=== PATIENT | male | born 1965 | race Caucasian/White ===

== ENCOUNTER 2018-07-15 22:24 | Inpatient (IN) | payer MEDICAID ==
[~2018-07-15] VITALS: Ht 188 cm; Wt 74.9 kg
[~2018-07-15 22:24] MED LIST: aspirin 300mg supp.rect RC ONE; aspirin 81mg tab.chew ONE; heparin 1,000 units/ml 10ml inj ONE; heparin, porcine-25,000 units/250ml premix IV ONE
[2018-07-15] MEDS ORDERED: heparin 25,000 UNIT/250ml bag 250 ML IV SCH ×2 (22:37→22:58)
[2018-07-15] MEDS ORDERED: heparin 10,000 units/1 ML INJ IV ONE ×2 (22:40→23:00)
[2018-07-15] MEDS ORDERED: aspirin 81mg tab.chew PO ONE (22:40)
[2018-07-15] MEDS ORDERED: heparin 10,000 units/1 ML INJ IV PRN (22:40)
[2018-07-15 22:44] LABS: BASOPHILS % (AUTO) 0.3 % (0-1); EOSINOPHILS # (AUTO) 0.2 X10'3 (0-0.9); EOSINOPHILS % (AUTO) 3.9 % (0-6); HEMATOCRIT 42.7 % (42.0-52.0); LYMPHOCYTES # (AUTO) 1.3 X10'3 (1.1-4.8); LYMPHOCYTES % (AUTO) 23.3 % (21-51); MEAN CORPUSCULAR HGB CONC 32.8 % (33.0-36.5); MEAN CORPUSCULAR VOLUME 88.3 FL (78-98); MEAN PLATELET VOLUME 7.8 FL (7.4-10.4); MONOCYTES # (AUTO) 0.4 X10'3 (0-0.9); MONOCYTES % (AUTO) 7.3 % (2-12); NEUTROPHILS # (AUTO) 3.6 X10'3 (1.8-7.7); NEUTROPHILS % (AUTO) 65.2 % (42-75); PLATELET COUNT 191 X10'3 (140-440); RED BLOOD COUNT 4.84 X10'6 (4.70-6.10); RED CELL DISTRIBUTION WIDTH 19.1 % (11.5-14.5); WHITE BLOOD COUNT 5.5 X10'3 (4.5-11.0)
[2018-07-15] MEDS ORDERED: RITO100C2 PO (22:52)
[2018-07-15] MEDS ORDERED: DARU100O PO (22:52)
[2018-07-15] MEDS: nitroGLYCERIN 0.4mg SUBLingual tab SL PRN ×2 (22:52→22:56)
[2018-07-15 23:01] LABS: ALANINE AMINOTRANSFERASE 38 U/L (12-78); ALBUMIN 3.3 G/DL (3.4-5.0); ALBUMIN/GLOBULIN RATIO 0.7 (1.1-1.5); ALKALINE PHOSPHATASE 132 IU/L (46-116); ANION GAP 10 (8-16); ASPARTATE AMINO TRANSFERASE 165 U/L (10-37); BILIRUBIN,TOTAL 0.8 MG/DL (0.1-1.0); BLOOD UREA NITROGEN 20 MG/DL (7-18); BUN/CREATININE RATIO 15.9 (5.4-32.0); CALCIUM 8.6 MG/DL (8.5-10.1); CHLORIDE 103 MMOL/L (99-107); CREATININE 1.26 MG/DL (0.60-1.10); GLUCOSE 111 MG/DL (70-104); SODIUM 138 MMOL/L (135-145); TOTAL CARBON DIOXIDE 24.9 MMOL/L (24-32); TOTAL PROTEIN 8.1 G/DL (6.4-8.2); eGFR 60 ML/MIN
[2018-07-15] MEDS ORDERED: nitroGLYCERIN-Tridil 50MG/D5W 250 ML IV ONE (23:05)
[2018-07-15] MEDS ORDERED: heparin 1,000unit/ml 10ml vial 10 ML ONE (23:05)
[2018-07-15] MEDS ORDERED: LIDOcaine 1% (10mg/ml)w/preservative injection 20ml MDV ONE (23:05)
[2018-07-15] MEDS ORDERED: iohexol 350 MG/1 ML 200ml bottle ONE (23:05)
[2018-07-15] MEDS ORDERED: iohexol 350 MG/ML 50ML vial IV ONE (23:05)
[2018-07-15 23:06] LABS: INR 1.3 INR; PARTIAL THROMBOPLASTIN TIME 29 SECONDS (22-32); PROTHROMBIN TIME 12.7 SECONDS (9.0-12.0)
--- NOTE | 2018-07-15 23:06 | NUR ---
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
[2018-07-15] MEDS ORDERED: midazolam 2 mg/2 ml injection ONE (23:22)
[2018-07-15] MEDS ORDERED: fentaNYL/PF 50MCG/1 ML 2ML syringe ONE (23:22)
[2018-07-16] VITALS (22 sets, daily range): BP systolic 85–123; BP diastolic 56–82
[2018-07-16] MEDS ORDERED: iohexol 350MG/ML 100ml bottle IV ONE (00:23)
[2018-07-16] MEDS ORDERED: DOBUTamine-DoBUTrex 500mg/D5W 250 ML IV ONE (00:36)
[2018-07-16] MEDS ORDERED: clopidogrel 300mg tablet ONE (00:36)
--- NOTE | 2018-07-16 02:00 | NUR ---
Patient arrived to floor and is in room ICU 2046. I have received report from Eric MILLS and had the opportunity to ask questions and assume patient care. 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 PA line, arterial line, and femoral sheath in place, all connected to monitor and transduced with good waveforms. Patient's HR in low 90s in sinus rhythm, BP 112/81 via arterial line and correlates with automatic cuff pressure, PA pressures elevated at 52/28. CO 4.7 on 5mcg/min of dobutamine. Heparin infusion running at 1000 units/hr. Will continue to monitor patient closely.
[2018-07-16] MEDS ORDERED: DOBUTamine-DoBUTrex 500mg/D5W 250 ML IV PRN (02:40)
[2018-07-16] MEDS ORDERED: cyclobenzaprine 10mg tablet PO PRN (03:05)
[2018-07-16] MEDS ORDERED: morphine 4 MG/ML inj SYRINge IV PRN ×2 (03:05→03:10)
[2018-07-16] MEDS ORDERED: HYDROcodone/acetaminophen 10/325mg tab PO PRN ×2 (03:05)
[2018-07-16] MEDS ORDERED: aspirin 325mg tablet PO ONE (03:05)
[2018-07-16] MEDS ORDERED: acetaminophen 325mg tablet PO PRN ×3 (03:05→04:55)
[2018-07-16] MEDS ORDERED: ondansetron/PF 4mg/2ml inj IV PRN (04:55)
[2018-07-16] MEDS ORDERED: magnesium hydroxide 30ml (MOM) UD suspension PO PRN (04:55)
[2018-07-16] MEDS ORDERED: mag hydrox/Alum hydrox/simeth 30ml oral suspension PO PRN (04:55)
[2018-07-16 05:35] LABS: BASOPHILS % (AUTO) 0.6 % (0-1); EOSINOPHILS # (AUTO) 0.1 X10'3 (0-0.9); HEMATOCRIT 38.2 % (42.0-52.0); HEMOGLOBIN 12.7 g/dl (14.0-17.9); LYMPHOCYTES # (AUTO) 0.6 X10'3 (1.1-4.8); MEAN CORPUSCULAR HEMOGLOBIN 29.1 PG (27.0-31.0); MEAN CORPUSCULAR HGB CONC 33.2 % (33.0-36.5); MEAN CORPUSCULAR VOLUME 87.6 FL (78-98); MEAN PLATELET VOLUME 7.4 FL (7.4-10.4); MONOCYTES # (AUTO) 0.2 X10'3 (0-0.9); MONOCYTES % (AUTO) 6.8 % (2-12); NEUTROPHILS # (AUTO) 2.4 X10'3 (1.8-7.7); NEUTROPHILS % (AUTO) 71.6 % (42-75); PLATELET COUNT 147 X10'3 (140-440); RED BLOOD COUNT 4.36 X10'6 (4.70-6.10); WHITE BLOOD COUNT 3.3 X10'3 (4.5-11.0)
[2018-07-16 05:51] LABS: ALANINE AMINOTRANSFERASE 37 U/L (12-78); ALBUMIN 2.8 G/DL (3.4-5.0); ALBUMIN/GLOBULIN RATIO 0.7 (1.1-1.5); ALKALINE PHOSPHATASE 110 IU/L (46-116); ANION GAP 11 (8-16); ASPARTATE AMINO TRANSFERASE 195 U/L (10-37); BILIRUBIN,TOTAL 0.6 MG/DL (0.1-1.0); BLOOD UREA NITROGEN 18 MG/DL (7-18); BUN/CREATININE RATIO 17.5 (5.4-32.0); CALCIUM 7.6 MG/DL (8.5-10.1); CHLORIDE 106 MMOL/L (99-107); CREATININE 1.03 MG/DL (0.60-1.10); GLUCOSE 99 MG/DL (70-104); MAGNESIUM 1.5 MG/DL (1.5-2.4); PHOSPHORUS 4.1 MG/DL (2.3-4.5); POTASSIUM 4.1 MMOL/L (3.5-5.1); SODIUM 138 MMOL/L (135-145); TOTAL PROTEIN 6.9 G/DL (6.4-8.2); eGFR 76 ML/MIN
--- NOTE | 2018-07-16 06:32 | NUR ---
Problems reprioritized. Patient report given, questions answered & plan of care reviewed with Sarah MILLS.
--- NOTE | 2018-07-16 06:50 | NUR ---
Patient in room ICU 2046. I have received report from GENE Son and had the opportunity to ask questions and assume patient care.
--- NOTE | 2018-07-16 07:08 | NUR ---
Pt refusing vyas cath. States he will use urinal
[2018-07-16] MEDS: RITONAVIR 100 MG PO SCH (08:00)
[2018-07-16] MEDS: carVEDilol 3.125mg tablet PO SCH ×2 (08:04→19:15)
[2018-07-16] MEDS: clopidogrel 75mg tablet PO SCH (08:04)
[2018-07-16] MEDS: atorvastatin 20mg tablet PO SCH (08:04)
[2018-07-16] MEDS: lisinopril 2.5mg tablet PO SCH (08:05)
--- NOTE | 2018-07-16 09:14 | NUR ---
Dr. Garcia notified of critical trop and estimated EF of 15%
[2018-07-16] MEDS: furosemide 20 MG/2 ML vial IV SCH ×2 (09:20→21:00)
[2018-07-16] MEDS ORDERED: magnesium 2GM in 50ml NS 50 ML IV ONE (09:50)
[2018-07-16] MEDS ORDERED: potassium Cl 40MEQ/NS 500ml 500 ML IV PRN ×2 (09:50)
[2018-07-16] MEDS ORDERED: magnesium 4gm in 100ml NS 100 ML IV PRN (09:50)
[2018-07-16] MEDS ORDERED: magnesium 2GM in 50ml NS 50 ML IV PRN (09:50)
[2018-07-16] MEDS ORDERED: potassium Cl 20 mEq SR tablet PO PRN ×2 (09:50)
--- NOTE | 2018-07-16 13:32 | NUR ---
Per Dr. Garcia, removed sheaths and PA line. Pt tolerated well, fem stop applied, pulses heard with doppler.
[2018-07-16 13:46] LABS: ISTAT HGB ART 13.3 g/dl (14.0-18.0); ISTAT Hct ART 39 %PCV (42-52); ISTAT O2 SATURATION ARTERIAL 98 % (95-98); ISTAT SOURCE ART
[2018-07-16 13:46] LABS: ISTAT Hct MIX 38 %PCV (42-52); ISTAT O2 SATURATION MIX VENOUS 44 % (60-80); ISTAT SOURCE MIX
--- NOTE | 2018-07-16 14:34 | NUR ---
Discussed critical trop of 69.[address] Garcia. Per , will cont to monitor and call again if next trop continues to increase. Also discussed BP of 80s/50s. Still does not want dobutamine to be titrated.
--- NOTE | 2018-07-16 18:25 | NUR ---
Patient in room ICU 2046. I have received report from Sarah MILLS and had the opportunity to ask questions and assume patient care. Patient laying flat in bed, femstop to be removed at 1830. Patient sleepy but easily arousable to verbal and tactile stimuli, following commands, alert/oriented x4. BP 97/61, HR in low 100s in sinus tachycardia. Will continue to monitor patient.
--- NOTE | 2018-07-16 18:27 | NUR ---
Problems reprioritized. Patient report given, questions answered & plan of care reviewed with GENE Son.
[2018-07-17] VITALS (27 sets, daily range): BP systolic 98–123; BP diastolic 66–91
--- NOTE | 2018-07-17 | NUR ---
Patient resting, moaning/groaning in sleep with periods of apnea while sleeping. Wakes up easily to verbal and tactile stimuli. Pulses by doppler to bilateral dorsalis pedis, groin site soft and without hematoma. Will continue to monitor.
[2018-07-17 04:45] LABS: BASOPHILS % (AUTO) 0.4 % (0-1); EOSINOPHILS # (AUTO) 0.1 X10'3 (0-0.9); EOSINOPHILS % (AUTO) 2.8 % (0-6); HEMATOCRIT 38.8 % (42.0-52.0); HEMOGLOBIN 13.1 g/dl (14.0-17.9); LYMPHOCYTES # (AUTO) 0.9 X10'3 (1.1-4.8); LYMPHOCYTES % (AUTO) 17.6 % (21-51); MEAN CORPUSCULAR HEMOGLOBIN 29.3 PG (27.0-31.0); MEAN CORPUSCULAR HGB CONC 33.6 % (33.0-36.5); MEAN CORPUSCULAR VOLUME 87.2 FL (78-98); MEAN PLATELET VOLUME 8.2 FL (7.4-10.4); MONOCYTES # (AUTO) 0.3 X10'3 (0-0.9); NEUTROPHILS # (AUTO) 3.5 X10'3 (1.8-7.7); NEUTROPHILS % (AUTO) 72.2 % (42-75); PLATELET COUNT 180 X10'3 (140-440); RED BLOOD COUNT 4.46 X10'6 (4.70-6.10); RED CELL DISTRIBUTION WIDTH 19.1 % (11.5-14.5); WHITE BLOOD COUNT 4.9 X10'3 (4.5-11.0)
[2018-07-17 05:14] LABS: ALANINE AMINOTRANSFERASE 43 U/L (12-78); ALBUMIN 2.9 G/DL (3.4-5.0); ALBUMIN/GLOBULIN RATIO 0.7 (1.1-1.5); ALKALINE PHOSPHATASE 115 IU/L (46-116); ANION GAP 10 (8-16); ASPARTATE AMINO TRANSFERASE 257 U/L (10-37); BILIRUBIN,TOTAL 0.7 MG/DL (0.1-1.0); BLOOD UREA NITROGEN 22 MG/DL (7-18); BUN/CREATININE RATIO 18.8 (5.4-32.0); CHLORIDE 102 MMOL/L (99-107); CREATININE 1.17 MG/DL (0.60-1.10); GLUCOSE 95 MG/DL (70-104); MAGNESIUM 1.7 MG/DL (1.5-2.4); PHOSPHORUS 3.6 MG/DL (2.3-4.5); POTASSIUM 4.2 MMOL/L (3.5-5.1); SODIUM 134 MMOL/L (135-145); TOTAL CARBON DIOXIDE 21.6 MMOL/L (24-32); TOTAL PROTEIN 7.3 G/DL (6.4-8.2); eGFR 66 ML/MIN
--- NOTE | 2018-07-17 06:21 | NUR ---
Problems reprioritized. Patient report given, questions answered & plan of care reviewed with Sarah MILLS.
--- NOTE | 2018-07-17 06:37 | NUR ---
Patient in room ICU 2046. I have received report from GENE Son and had the opportunity to ask questions and assume patient care.
--- NOTE | 2018-07-17 06:43 | NUR ---
Called pharmacy to check status on getting pt's HIV medications. Pharmacy stated they do not have them and cannot get them and that the only option is for pt to have someone bring meds in from home. He is unable to do that. Pharmacist stated she will ask around and see if there are other options.
[2018-07-17] MEDS: carVEDilol 3.125mg tablet PO SCH ×2 (07:57→19:58)
[2018-07-17] MEDS: furosemide 20 MG/2 ML vial IV SCH ×2 (07:57→19:58)
[2018-07-17] MEDS: lisinopril 2.5mg tablet PO SCH (07:57)
[2018-07-17] MEDS: clopidogrel 75mg tablet PO SCH (07:58)
[2018-07-17] MEDS: atorvastatin 20mg tablet PO SCH (07:58)
[2018-07-17] MEDS: K and/or MAG REPLACEMENT MC SCH (08:00)
[2018-07-17] MEDS: RITONAVIR 100 MG PO SCH (08:00)
[2018-07-17] MEDS ORDERED: methylnaltrexone br 12mg/0.6ml inj***SubQ only SQ SCH (08:00)
[2018-07-17 11:14] LABS: % CD 4 POS. LYMPH 6.2 % (30.8-58.5); ABSOLUTE CD 4 HELPER 37 /uL (359-1519); BASOS 0 % (Not Estab.); EOS 1 % (Not Estab.); HEMATOCRIT 35.8 % (37.5-51.0); HEMOGLOBIN 12.3 g/dL (13.0-17.7); LYMPHS 13 % (Not Estab.); LYMPHS (ABSOLUTE) 0.6 x10E3/uL (0.7-3.1); MCH 28.9 pg (26.6-33.0); MCHC 34.4 g/dL (31.5-35.7); MCV 84 fL (79-97); MONOCYTES 7 % (Not Estab.); MONOCYTES (ABSOLUTE) 0.3 x10E3/uL (0.1-0.9); NEUTROPHILS 79 % (Not Estab.); NEUTROPHILS (ABSOLUTE) 3.7 x10E3/uL (1.4-7.0); PLATELETS 158 x10E3/uL (150-379); RBC 4.26 x10E6/uL (4.14-5.80); RDW 17.3 % (12.3-15.4); WBC 4.7 x10E3/uL (3.4-10.8)
--- NOTE | 2018-07-17 13:45 | NUR ---
Pt up to bedside commode without difficulty. Linens changed.
--- NOTE | 2018-07-17 16:01 | NUR ---
Received report from Sarah MILLS in CICU. Awaiting patient's arrival to the unit.
--- NOTE | 2018-07-17 16:29 | NUR ---
Gave report to GENE Armstrong. Pt transferred to PCU via wheelchair and on tele. Pt alert, oriented, and stable for transfer. Placed on mobile when pt arrived in tele. Pt stated he had no belongings. Transferred from wheelchair to bed without difficulty and had no complaints.
--- NOTE | 2018-07-17 16:30 | NUR ---
pt arrvied to PCU from CICU alert, stable, vitals WNL. on dobutamine @5. incision groin site is clean and dry. all needs addressed.
--- NOTE | 2018-07-17 18:57 | NUR ---
Patient in room PCU 3008. I have received report from ashlee redmond and had the opportunity to ask questions and assume patient care. dr aquino in room and ordered to decrease dobutamine gtt from 5 to 2.5 and to stop the dobutamine gtt at 7am. patient awake in no distress continue to monitor
--- NOTE | 2018-07-17 19:07 | NUR ---
dr aquino also ordered for nurses to ensur k is 4 or above and mg 2 or above
[2018-07-17] MEDS ORDERED: DOBUTamine-DoBUTrex 500mg/D5W 250 ML IV PRN ×2 (19:09→19:22)
[2018-07-17] MEDS: OXAZEpam 15mg capsule PO PRN (19:58)
[2018-07-17] MEDS: magnesium Cl slow-release 64mg tablet PO PRN (19:58)
[2018-07-18] VITALS (11 sets, daily range): BP systolic 102–125; BP diastolic 56–96
--- NOTE | 2018-07-18 06:21 | NUR ---
Problems reprioritized. Patient report given, questions answered & plan of care reviewed with michael redmond. patient woke up and was responding to nursing questions appropriately; stated he still felt like he had some anxiety but it was better. in no distress; dobutamine still running until 7am. cl in reach v/s stable
--- NOTE | 2018-07-18 06:23 | NUR ---
Patient in room PCU 3008. I have received report from Angy MILLS and had the opportunity to ask questions and assume patient care. Pt alert and oriented X4, Dobutamine running at 2.5 mcg/kg/min, pt is on room air. Will continue to monitor.
--- NOTE | 2018-07-18 06:23 | NUR ---
[facility] Medication Administration: For this medication-pass time frame, all medication were reviewed, dispensed, administered and documented per hospital policy by uyen redmond.
--- NOTE | 2018-07-18 06:23 | NUR ---
orientee documentation: I have reviewed and agree with all interventions, assessments performed and documented by uyen redmond.
[2018-07-18 06:51] LABS: BASOPHILS % (AUTO) 0.5 % (0-1); EOSINOPHILS # (AUTO) 0.2 X10'3 (0-0.9); EOSINOPHILS % (AUTO) 2.8 % (0-6); HEMATOCRIT 42.3 % (42.0-52.0); HEMOGLOBIN 13.6 g/dl (14.0-17.9); LYMPHOCYTES # (AUTO) 1.1 X10'3 (1.1-4.8); LYMPHOCYTES % (AUTO) 17.4 % (21-51); MEAN CORPUSCULAR HEMOGLOBIN 28.8 PG (27.0-31.0); MEAN CORPUSCULAR HGB CONC 32.2 % (33.0-36.5); MEAN CORPUSCULAR VOLUME 89.4 FL (78-98); MEAN PLATELET VOLUME 8.3 FL (7.4-10.4); MONOCYTES # (AUTO) 0.5 X10'3 (0-0.9); MONOCYTES % (AUTO) 7.6 % (2-12); NEUTROPHILS # (AUTO) 4.7 X10'3 (1.8-7.7); NEUTROPHILS % (AUTO) 71.7 % (42-75); PLATELET COUNT 200 X10'3 (140-440); RED BLOOD COUNT 4.73 X10'6 (4.70-6.10); RED CELL DISTRIBUTION WIDTH 19.2 % (11.5-14.5); WHITE BLOOD COUNT 6.5 X10'3 (4.5-11.0)
--- NOTE | 2018-07-18 07:02 | NUR ---
Shut Dobutamine off per MD order. Will monitor vital signs every 15 minutes for the first hour, and hourly urine output.
[2018-07-18 07:05] LABS: ALANINE AMINOTRANSFERASE 37 U/L (12-78); ALBUMIN 2.9 G/DL (3.4-5.0); ALBUMIN/GLOBULIN RATIO 0.6 (1.1-1.5); ALKALINE PHOSPHATASE 116 IU/L (46-116); ANION GAP 12 (8-16); ASPARTATE AMINO TRANSFERASE 142 U/L (10-37); BILIRUBIN,TOTAL 0.5 MG/DL (0.1-1.0); BLOOD UREA NITROGEN 26 MG/DL (7-18); BUN/CREATININE RATIO 23.4 (5.4-32.0); CALCIUM 8.2 MG/DL (8.5-10.1); CHLORIDE 100 MMOL/L (99-107); CREATININE 1.11 MG/DL (0.60-1.10); GLUCOSE 93 MG/DL (70-104); MAGNESIUM 1.9 MG/DL (1.5-2.4); PHOSPHORUS 4.2 MG/DL (2.3-4.5); SODIUM 134 MMOL/L (135-145); TOTAL CARBON DIOXIDE 22.2 MMOL/L (24-32); TOTAL PROTEIN 7.6 G/DL (6.4-8.2); eGFR 70 ML/MIN
[2018-07-18] MEDS ORDERED: RITONAVIR 100 MG PO SCH (08:00)
[2018-07-18] MEDS ORDERED: TENOFOVIR PO SCH (08:00)
[2018-07-18] MEDS: K and/or MAG REPLACEMENT MC SCH (08:00)
[2018-07-18] MEDS ORDERED: EMTRICITABINE PO SCH (08:00)
[2018-07-18] MEDS: furosemide 20 MG/2 ML vial IV SCH (08:17)
[2018-07-18] MEDS: clopidogrel 75mg tablet PO SCH (08:17)
[2018-07-18] MEDS: atorvastatin 20mg tablet PO SCH (08:17)
[2018-07-18] MEDS: OXAZEpam 15mg capsule PO PRN (08:18)
[2018-07-18] MEDS: carVEDilol 3.125mg tablet PO SCH (08:18)
[2018-07-18] MEDS: magnesium Cl slow-release 64mg tablet PO PRN (08:19)
--- NOTE | 2018-07-18 10:23 | NUR ---
Ambulation with PT department staff. Steady with distance >300 ft. Physical Therapy communicated to nursing, Pt. will be discharged from treatments.
[2018-07-18] MEDS: lisinopril 2.5mg tablet PO SCH (10:24)
[2018-07-18] MEDS ORDERED: FURO-150 PO (10:36)
[2018-07-18] MEDS ORDERED: COR3.125T PO (10:36)
[2018-07-18] MEDS ORDERED: SPIR25TA5 PO (10:36)
[2018-07-18] MEDS ORDERED: CLOP75TA35 PO (10:36)
[2018-07-18] MEDS ORDERED: LISI2.5T2 PO (10:36)
[2018-07-18] MEDS ORDERED: ATOR20TA66 PO (10:36)
--- NOTE | 2018-07-18 11:18 | NUR ---
Discharge medications are delivered and Pt. will be going home with them. Stored in the [facility] untill dischange.
--- NOTE | 2018-07-18 15:20 | NUR ---
Pt discharged, tele monitor discontinued, IV discontinued with canula intact. Provided pt education in regards to discharge instruction and new meds. Informed pt of his follow up appointment with [facility] tomorrow July 19 at 0800. Pt denied chest pain and vitals were stable. Educated pt to talk with his primary care provider in regards to his Atorvastatin being contraindicated with his antiviral meds. Pt left in private vehicle driven by family member with all of his belongings.
== END 2018-07-18 15:35 | disposition home or self-care (01) | DRG 174 ==
LOC: ER 22:25 → ICU 2S 07-16 01:57 → PCU 3S 07-17 16:22
PROVIDERS: ADMIT Internal Medicine Critical Care Medicine; ATTEND Internal Medicine Cardiovascular Disease
PROC: 02703DZ Dilation of Coronary Artery, One Artery with Intraluminal Device, Percutaneous Approach (ICD-10-PCS; principal; 2018-07-16)
PROC: B2151ZZ Fluoroscopy of Left Heart using Low Osmolar Contrast (ICD-10-PCS; 2018-07-16)
PROC: 4A023N8 Measurement of Cardiac Sampling and Pressure, Bilateral, Percutaneous Approach (ICD-10-PCS; 2018-07-16)
PROC: B2111ZZ Fluoroscopy of Multiple Coronary Arteries using Low Osmolar Contrast (ICD-10-PCS; 2018-07-16)
DX: I21.09 ST elevation (STEMI) myocardial infarction involving other coronary artery of anterior wall (principal); I50.21 Acute systolic (congestive) heart failure; B20 Human immunodeficiency virus [HIV] disease; I42.0 Dilated cardiomyopathy; K74.60 Unspecified cirrhosis of liver; B19.20 Unspecified viral hepatitis C without hepatic coma; F15.10 Other stimulant abuse, uncomplicated; E78.00 Pure hypercholesterolemia, unspecified; E78.5 Hyperlipidemia, unspecified; I10 Essential (primary) hypertension; I25.10 Atherosclerotic heart disease of native coronary artery without angina pectoris; J44.9 Chronic obstructive pulmonary disease, unspecified; Z88.8 Allergy status to other drugs, medicaments and biological substances; Z56.0 Unemployment, unspecified; Z72.0 Tobacco use; Z63.8 Other specified problems related to primary support group; Z71.6 Tobacco abuse counseling
CPT/HCPCS: 36415; 71045; 80053; 82803; 83735; 83880; 84100; 84484; 85014; 85025; 85347; 85610; 85730; 86361; 87070; 93005; 93306; 96365; 96376; 97116; 97161; 97530; 99285; G0378; J1250; J1644; J1940; J2001; J2250; J2270; J3010; J3475; J3490; Q9967

== ENCOUNTER 2018-07-25 17:44 | Inpatient (IN) | payer MEDICAID | END 2018-07-29 16:40 | disposition home or self-care (01) | LOC: ER 17:44 → PCU 3S 07-26 01:34 → ED HOLD 22:33 | DX: I22.9 Subsequent ST elevation (STEMI) myocardial infarction of unspecified site (principal); I42.8 Other cardiomyopathies; F15.10 Other stimulant abuse, uncomplicated; I21.9 Acute myocardial infarction, unspecified ==

== ENCOUNTER 2018-09-28 20:45 | Inpatient (IN) | payer MEDICAID ==
[~2018-09-28] VITALS: Ht 188 cm; Wt 66.6 kg
[~2018-09-28 20:45] MED LIST changes: +ATOR40TA PO; +CARV3.1244 PO; +CLOP75TA35 PO; +DARU800T PO; +EMTR1TAB18 PO; +FURO20TA4 PO; +LISI2.5T2 PO; +RITO100C2 PO; +SPIR25TA5 PO; -aspirin 300mg supp.rect RC ONE; -aspirin 81mg tab.chew ONE; -heparin 1,000 units/ml 10ml inj ONE; -heparin, porcine-25,000 units/250ml premix IV ONE
[2018-09-28] MEDS ORDERED: normal saline 1000ml 1,000 ML IV ONE (20:54)
[2018-09-28] MEDS ORDERED: morphine 4 MG/ML inj SYRINge IV ONE (20:55)
[2018-09-28] MEDS ORDERED: metoprolol tartrate 1mg/ml inj IV ONE ×2 (20:55→23:00)
[2018-09-28] MEDS ORDERED: normal saline 1000ML IV soln IVB ONE (21:00)
[2018-09-28] MEDS: heparin 25,000 UNIT/250ml bag 250 ML IV SCH ×2 (21:06→23:19)
[2018-09-28] MEDS ORDERED: potassium Cl 20 mEq SR tablet PO PRN ×2 (21:35)
[2018-09-28] MEDS ORDERED: magnesium Cl slow-release 64mg tablet PO PRN (21:35)
[2018-09-28] MEDS ORDERED: acetaminophen 325mg tablet PO PRN ×2 (21:35)
[2018-09-28] MEDS ORDERED: magnesium 4gm in 100ml NS 100 ML IV PRN (21:35)
[2018-09-28] MEDS ORDERED: mag hydrox/Alum hydrox/simeth 30ml oral suspension PO PRN (21:35)
[2018-09-28] MEDS ORDERED: ondansetron/PF 4mg/2ml inj IV PRN (21:35)
[2018-09-28] MEDS ORDERED: magnesium hydroxide 30ml (MOM) UD suspension PO PRN (21:35)
[2018-09-28] MEDS ORDERED: magnesium 2GM in 50ml NS 50 ML IV PRN (21:35)
[2018-09-28] MEDS ORDERED: potassium Cl 40MEQ/NS 500ml 500 ML IV PRN ×2 (21:35)
[2018-09-28] MEDS ORDERED: nitroGLYCERIN 0.4mg SUBLingual tab SL PRN (21:35)
[2018-09-28 21:46] LABS: BASOPHILS # (AUTO) 0.1 X10'3 (0-0.2); BASOPHILS % (AUTO) 0.8 % (0-1); EOSINOPHILS # (AUTO) 0.1 X10'3 (0-0.9); EOSINOPHILS % (AUTO) 2.2 % (0-6); HEMATOCRIT 43.1 % (42.0-52.0); HEMOGLOBIN 13.9 g/dl (14.0-17.9); LYMPHOCYTES # (AUTO) 1.6 X10'3 (1.1-4.8); LYMPHOCYTES % (AUTO) 23.5 % (21-51); MEAN CORPUSCULAR HEMOGLOBIN 29.4 PG (27.0-31.0); MEAN CORPUSCULAR HGB CONC 32.2 g/dL (33.0-36.5); MEAN CORPUSCULAR VOLUME 91.2 FL (78-98); MEAN PLATELET VOLUME 7.4 FL (7.4-10.4); MONOCYTES # (AUTO) 0.7 X10'3 (0-0.9); MONOCYTES % (AUTO) 9.9 % (2-12); NEUTROPHILS # (AUTO) 4.3 X10'3 (1.8-7.7); NEUTROPHILS % (AUTO) 63.6 % (42-75); PLATELET COUNT 233 X10'3 (140-440); RED BLOOD COUNT 4.72 X10'6 (4.70-6.10); RED CELL DISTRIBUTION WIDTH 19.7 % (11.5-14.5); WHITE BLOOD COUNT 6.7 X10'3 (4.5-11.0)
[2018-09-28 21:54] LABS: ALANINE AMINOTRANSFERASE 24 U/L (12-78); ALBUMIN 3.1 G/DL (3.4-5.0); ALBUMIN/GLOBULIN RATIO 0.7 (1.1-1.5); ALKALINE PHOSPHATASE 109 IU/L (46-116); ANION GAP 10 (8-16); ASPARTATE AMINO TRANSFERASE 26 U/L (10-37); BILIRUBIN,TOTAL 0.6 MG/DL (0.1-1.0); BLOOD UREA NITROGEN 18 MG/DL (7-18); BUN/CREATININE RATIO 18.6 (5.4-32.0); CALCIUM 8.8 MG/DL (8.5-10.1); CHLORIDE 106 MMOL/L (99-107); CREATININE 0.97 MG/DL (0.60-1.10); GLUCOSE 95 MG/DL (70-104); POTASSIUM 4.7 MMOL/L (3.5-5.1); SODIUM 137 MMOL/L (135-145); TOTAL CARBON DIOXIDE 21.2 MMOL/L (24-32); TOTAL PROTEIN 7.7 G/DL (6.4-8.2); eGFR 82 ML/MIN
[2018-09-28 22:04] LABS: MAGNESIUM 1.6 MG/DL (1.5-2.4)
[2018-09-28 22:07] LABS: INR 1.2 INR; PARTIAL THROMBOPLASTIN TIME 33 SECONDS (22-32); PROTHROMBIN TIME 11.7 SECONDS (9.0-12.0)
[2018-09-28 22:30] VITALS: BP 114/79
--- NOTE | 2018-09-28 22:30 | NUR ---
Recieved report from Charge nurse GENE Boyd. Patient arrived to the floor, he was stable and alert and oriented. He was able to ambulate from the ED stretcher to the hospital bed in the room. Patient arrived with family member at the bedside. Will continue to monitor patient for the duration of shift.
[2018-09-28] MEDS ORDERED: morphine 2 MG/ML inj. syringe IV PRN (23:00)
[2018-09-28] MEDS ORDERED: nitroGLYCERIN 1gm ointment UD TP ONE (23:00)
[2018-09-28] MEDS ORDERED: furosemide 20 MG/2 ML vial IV ONE (23:00)
[2018-09-28] MEDS: heparin 10,000 units/1 ML INJ IV SCH (23:19)
[2018-09-29 02:00] VITALS: BP 100/82
[2018-09-29 03:27] LABS: BASOPHILS # (AUTO) 0.1 X10'3 (0-0.2); BASOPHILS % (AUTO) 1.5 % (0-1); EOSINOPHILS # (AUTO) 0.1 X10'3 (0-0.9); EOSINOPHILS % (AUTO) 1.9 % (0-6); HEMATOCRIT 45.6 % (42.0-52.0); HEMOGLOBIN 14.7 g/dl (14.0-17.9); LYMPHOCYTES # (AUTO) 1.6 X10'3 (1.1-4.8); LYMPHOCYTES % (AUTO) 24.1 % (21-51); MEAN CORPUSCULAR HEMOGLOBIN 29.5 PG (27.0-31.0); MEAN CORPUSCULAR HGB CONC 32.2 g/dL (33.0-36.5); MEAN CORPUSCULAR VOLUME 91.5 FL (78-98); MEAN PLATELET VOLUME 7.7 FL (7.4-10.4); MONOCYTES # (AUTO) 0.6 X10'3 (0-0.9); MONOCYTES % (AUTO) 9.5 % (2-12); NEUTROPHILS # (AUTO) 4.1 X10'3 (1.8-7.7); PLATELET COUNT 232 X10'3 (140-440); RED BLOOD COUNT 4.98 X10'6 (4.70-6.10); RED CELL DISTRIBUTION WIDTH 20.3 % (11.5-14.5); WHITE BLOOD COUNT 6.5 X10'3 (4.5-11.0)
[2018-09-29 03:39] LABS: ALBUMIN 3.3 G/DL (3.4-5.0); ANION GAP 9 (8-16); BLOOD UREA NITROGEN 16 MG/DL (7-18); BUN/CREATININE RATIO 14.5 (5.4-32.0); CALCIUM 9.1 MG/DL (8.5-10.1); CHLORIDE 104 MMOL/L (99-107); CHOL/HDL RATIO 4.5 (0.00-4.99); CHOLESTEROL 175 MG/DL (0-200); GLUCOSE 117 MG/DL (70-104); HDL CHOLESTEROL 39 MG/DL (35-60); LDL CHOLESTEROL 134 MG/DL (50-100); MAGNESIUM 1.7 MG/DL (1.5-2.4); POTASSIUM 4.1 MMOL/L (3.5-5.1); SODIUM 138 MMOL/L (135-145); TOTAL CARBON DIOXIDE 25.4 MMOL/L (24-32); TRIGLYCERIDES 46 MG/DL (20-135); eGFR 71 ML/MIN
[2018-09-29] MEDS: heparin 10,000 units/1 ML INJ IV SCH ×2 (04:39→12:38)
[2018-09-29] MEDS: heparin 25,000 UNIT/250ml bag 250 ML IV SCH ×2 (04:41→12:42)
[2018-09-29 06:00] VITALS: BP 110/81
[2018-09-29] MEDS: atorvastatin 20mg tablet PO SCH (07:33)
[2018-09-29] MEDS: clopidogrel 75mg tablet PO SCH (07:33)
[2018-09-29] MEDS: lisinopril 2.5mg tablet PO SCH (07:34)
[2018-09-29] MEDS: carVEDilol 3.125mg tablet PO SCH ×2 (07:34→19:16)
[2018-09-29] MEDS: furosemide 20MG tablet PO SCH (07:34)
[2018-09-29] MEDS: spironolactone 25 MG tablet PO SCH (07:35)
[2018-09-29] MEDS: K and/or MAG REPLACEMENT MC SCH (08:00)
[2018-09-29] MEDS: PREZISTA 800 MG PO SCH (08:00)
[2018-09-29] MEDS ORDERED: enoxaparin 40mg/0.4ml syringe SQ SCH (08:00)
--- NOTE | 2018-09-29 09:12 | NUR ---
Patient states that his sister is coming from [place] to bring his Antiviral medications. Will administer medications when the sister arrives.
--- NOTE | 2018-09-29 10:34 | NUR ---
Noted that patient's BMI is currently underweight. Current documented weight is unreliable as it is a pt stated weight, however patient's weight seems to usually be on the lower end of appropriate per documented weight of 74.9 kg using bed scale at previous visit on 07/17/18 with a BMI of 21. Pt currently on a heart healthy diet with documented PO intake 100% meeting nutrient needs; pt documented with 100% intake at previous visits in June to early July. Pt with no documented edema. No signs of malnutrition at this time. Will continue to follow. Addendum: 09/29/18 at [address] RD Amended: Links added.
[2018-09-29 11:13] VITALS: BP 106/80
[2018-09-29 11:23] LABS: CLARITY,URINE CLEAR (Clear); COLOR,URINE YELLOW (Yellow); GLUCOSE, URINE NEGATIVE (Neg); KETONES,URINE NEGATIVE (Neg); LEUKOCYTE ESTERASE ,URINE NEGATIVE (Neg); NITRITES, URINE NEGATIVE (Neg); OCCULT BLOOD,URINE LARGE (Neg); PH,URINE 5.5 (4.8-8.0); PROTEIN,URINE NEGATIVE (Neg); UROBILINOGEN,URINE 0.2 E.U/dL (0.2-1.0)
[2018-09-29 11:24] LABS: UA COLLECTION TYPE FOLEY CATH
[2018-09-29 11:36] LABS: URINE AMPHETAMINE SCREEN NEGATIVE (Neg); URINE BARBITUATE SCREEN NEGATIVE (Neg); URINE BENZODIAZEPINES SCREEN NEGATIVE (Neg); URINE CANNABINOID SCREEN NEGATIVE (Neg); URINE COCAINE SCREEN NEGATIVE (Neg); URINE METHADONE SCREEN NEGATIVE (Neg); URINE OPIATE SCREEN POSITIVE (Neg); URINE PHENCYCLIDINE SCREEN NEGATIVE (Neg)
[2018-09-29 11:39] LABS: RBC,URINE TNTC /HPF (0-2); WBC,URINE NONE SEEN /HPF (0-4)
[2018-09-29 11:40] LABS: BACTERIA,URINE NONE SEEN /HPF (Neg); MUCUS STRANDS NONE SEEN /LPF (Neg); SQUAMOUS EPITHELIAL CELL,UR FEW /LPF (FEW)
[2018-09-29] MEDS: NORVIR 100 MG PO SCH (14:36)
[2018-09-29] MEDS: Emtricitabine/Tenofov Alafenam (Descovy 200-25 mg Tablet) PO SCH (14:36)
[2018-09-29 15:00] VITALS: BP 99/70
[2018-09-29] MEDS ORDERED: iohexol 350MG/ML 100ml bottle IV ONE (17:03)
[2018-09-29 18:00] VITALS: BP 98/74
[2018-09-29] MEDS ORDERED: aminophylline 250mg/10ml inj. IV PRN (18:10)
[2018-09-29] MEDS ORDERED: regadenoson 0.4mg/5ml syringe IV PRN (18:10)
[2018-09-29] MEDS ORDERED: nitroGLYCERIN 0.4mg SUBLingual tab SL PRN (18:10)
[2018-09-29] MEDS ORDERED: metoprolol tartrate 1mg/ml inj IV PRN (18:10)
--- NOTE | 2018-09-29 18:45 | NUR ---
Patient in room U 3012. I have received report from Minh Otoole and had the opportunity to ask questions and assume patient care. Addendum: 09/29/18 at 1845 by Laura Franco RN Amended: Links added.
--- NOTE | 2018-09-29 18:55 | NUR ---
received patient in Addendum: 09/29/18 at 2141 by Laura Franco RN received patient in bed and stated that he's been c/o chest pain since afternoon and no one is addressing his pain, told patient that they did some test to address his complaint. patient stated that no one gave him pain medication even if they said that they will given him pain med. pain med was given early this shift, c/o chest wall pain, non radiating, will continue to monitor
--- NOTE | 2018-09-29 19:00 | NUR ---
PTT level within therapeutic level of 47, no changes or adjustments noted
[2018-09-29] MEDS: HYDROmorphone inj. 0.5 MG/0.5 ML DISP.SYRIN IV PRN ×2 (19:18→21:36)
[2018-09-29 22:00] VITALS: BP 105/71
[2018-09-30] VITALS (14 sets, daily range): BP systolic 101–116; BP diastolic 72–85
[2018-09-30] MEDS: HYDROmorphone inj. 0.5 MG/0.5 ML DISP.SYRIN IV PRN (00:45)
[2018-09-30 00:53] LABS: ALBUMIN 3.1 G/DL (3.4-5.0); ANION GAP 10 (8-16); BASOPHILS # (AUTO) 0.1 X10'3 (0-0.2); BASOPHILS % (AUTO) 1.8 % (0-1); BLOOD UREA NITROGEN 18 MG/DL (7-18); BUN/CREATININE RATIO 17.1 (5.4-32.0); CALCIUM 9.1 MG/DL (8.5-10.1); CHLORIDE 101 MMOL/L (99-107); CREATININE 1.05 MG/DL (0.60-1.10); EOSINOPHILS # (AUTO) 0.1 X10'3 (0-0.9); EOSINOPHILS % (AUTO) 1.7 % (0-6); GLUCOSE 105 MG/DL (70-104); HEMATOCRIT 42.6 % (42.0-52.0); HEMOGLOBIN 13.9 g/dl (14.0-17.9); LYMPHOCYTES # (AUTO) 1.5 X10'3 (1.1-4.8); LYMPHOCYTES % (AUTO) 26.6 % (21-51); MAGNESIUM 1.7 MG/DL (1.5-2.4); MEAN CORPUSCULAR HEMOGLOBIN 29.5 PG (27.0-31.0); MEAN CORPUSCULAR HGB CONC 32.7 g/dL (33.0-36.5); MEAN CORPUSCULAR VOLUME 90.4 FL (78-98); MEAN PLATELET VOLUME 7.4 FL (7.4-10.4); MONOCYTES # (AUTO) 0.4 X10'3 (0-0.9); MONOCYTES % (AUTO) 7.7 % (2-12); NEUTROPHILS # (AUTO) 3.5 X10'3 (1.8-7.7); NEUTROPHILS % (AUTO) 62.2 % (42-75); PLATELET COUNT 208 X10'3 (140-440); POTASSIUM 4.3 MMOL/L (3.5-5.1); RED BLOOD COUNT 4.72 X10'6 (4.70-6.10); RED CELL DISTRIBUTION WIDTH 20.5 % (11.5-14.5); SODIUM 133 MMOL/L (135-145); TOTAL CARBON DIOXIDE 22.5 MMOL/L (24-32); WHITE BLOOD COUNT 5.7 X10'3 (4.5-11.0); eGFR 74 ML/MIN
[2018-09-30] MEDS: heparin 10,000 units/1 ML INJ IV SCH (01:46)
[2018-09-30] MEDS: heparin 25,000 UNIT/250ml bag 250 ML IV SCH ×2 (01:48→11:18)
--- NOTE | 2018-09-30 06:19 | NUR ---
Problems reprioritized. Patient report given, questions answered & plan of care reviewed with Low Jensen RN. Addendum: 09/30/18 at 0620 by Laura Franco RN Amended: Links added.
--- NOTE | 2018-09-30 07:41 | NUR ---
Pt moved to ACCE from u Pt injected for lexiscan.
[2018-09-30] MEDS: PREZISTA 800 MG PO SCH (08:00)
[2018-09-30] MEDS: K and/or MAG REPLACEMENT MC SCH (08:00)
--- NOTE | 2018-09-30 09:18 | NUR ---
pt to stress test
[2018-09-30] MEDS ORDERED: aminophylline inj. 10 ML IV ONE (09:56)
[2018-09-30] MEDS ORDERED: regadenoson 0.4mg/5ml syringe IV ONE (09:56)
--- NOTE | 2018-09-30 10:02 | NUR ---
8 AM medications held for NPO, will give medications after return from stress test.
[2018-09-30] MEDS: atorvastatin 20mg tablet PO SCH (11:04)
[2018-09-30] MEDS: furosemide 20MG tablet PO SCH (11:04)
[2018-09-30] MEDS: lisinopril 2.5mg tablet PO SCH (11:04)
[2018-09-30] MEDS: clopidogrel 75mg tablet PO SCH (11:04)
[2018-09-30] MEDS: carVEDilol 3.125mg tablet PO SCH (11:04)
[2018-09-30] MEDS: spironolactone 25 MG tablet PO SCH (11:04)
[2018-09-30] MEDS: Emtricitabine/Tenofov Alafenam (Descovy 200-25 mg Tablet) PO SCH (11:05)
[2018-09-30] MEDS: NORVIR 100 MG PO SCH (11:05)
--- NOTE | 2018-09-30 11:08 | NUR ---
8 AM medications administered once back from stress test.
[2018-09-30] MEDS ORDERED: PRED20TA PO (12:58)
--- NOTE | 2018-09-30 14:41 | NUR ---
IV catheters from left and right hands removed, catheters intact on both. Link catheter discontinued.
--- NOTE | 2018-09-30 14:49 | NUR ---
Pt given DC instructions. All questions answered. Pt medications returned to pt. pt escorted to POV by volunteer.
--- NOTE | 2018-09-30 14:53 | NUR ---
Auxillary came to bring patient to lobby. Patient's discharge forms were signed and patient education about PCP follow up and medications were discussed.
== END 2018-09-30 14:50 | disposition home or self-care (01) | DRG 890 ==
LOC: ER 20:45 → ED HOLD 21:31 → MED 3N 22:28 → PCU 3S 09-29 17:54 → MED 3N 09-30 06:49
PROVIDERS: ADMIT Hospitalist; ATTEND Family Medicine
PROC: B32T1ZZ Computerized Tomography (CT Scan) of Left Pulmonary Artery using Low Osmolar Contrast (ICD-10-PCS; 2018-09-29)
PROC: B32S1ZZ Computerized Tomography (CT Scan) of Right Pulmonary Artery using Low Osmolar Contrast (ICD-10-PCS; 2018-09-29)
PROC: 4A02XM4 Measurement of Cardiac Total Activity, External Approach (ICD-10-PCS; principal; 2018-09-30)
PROC: 3E033HZ Introduction of Radioactive Substance into Peripheral Vein, Percutaneous Approach (ICD-10-PCS; 2018-09-30)
DX: R09.1 Pleurisy (principal); B20 Human immunodeficiency virus [HIV] disease; K74.60 Unspecified cirrhosis of liver; I42.0 Dilated cardiomyopathy; I11.0 Hypertensive heart disease with heart failure; I50.22 Chronic systolic (congestive) heart failure; E87.1 Hypo-osmolality and hyponatremia; R07.89 Other chest pain; I25.119 Atherosclerotic heart disease of native coronary artery with unspecified angina pectoris; E78.00 Pure hypercholesterolemia, unspecified; I08.1 Rheumatic disorders of both mitral and tricuspid valves; B19.20 Unspecified viral hepatitis C without hepatic coma; J43.9 Emphysema, unspecified; E78.5 Hyperlipidemia, unspecified; I25.2 Old myocardial infarction; Z95.5 Presence of coronary angioplasty implant and graft; Z87.442 Personal history of urinary calculi; Z88.8 Allergy status to other drugs, medicaments and biological substances; Z79.899 Other long term (current) drug therapy; Z56.0 Unemployment, unspecified
CPT/HCPCS: 36415; 71045; 71275; 78452; 80048; 80053; 80061; 80305; 81001; 83735; 83880; 84484; 85025; 85610; 85730; 87070; 93005; 93017; 93306; 96374; 99291; A9500; G0378; J0280; J1170; J1644; J1940; J2270; J3490; Q9967